=== PATIENT | male | born 1995 | race African-American/Black ===

== ENCOUNTER 2017-10-25 21:40 | Emergency (ER) | payer SELFPAY | END 2017-10-25 22:21 | disposition home or self-care (01) | LOC: ERS 21:40 | DX: S90.422A Blister (nonthermal), left great toe, initial encounter (principal); F17.210 Nicotine dependence, cigarettes, uncomplicated; X58.XXXA Exposure to other specified factors, initial encounter | CPT/HCPCS: 99283 ==

== ENCOUNTER 2018-01-10 12:51 | Emergency (ER) | payer SELFPAY ==
[2018-01-10] MEDS ORDERED: Ketorolac Tromethamine 30 MG/ML VIAL ONE (13:50)
[2018-01-10] MEDS ORDERED: Ibuprofen 200 MG TAB ONE (14:14)
== END 2018-01-10 15:00 | disposition home or self-care (01) ==
LOC: ERS 12:51
DX: R51 Headache (principal); G43.909 Migraine, unspecified, not intractable, without status migrainosus; F17.210 Nicotine dependence, cigarettes, uncomplicated
CPT/HCPCS: 99283; J1885

== ENCOUNTER 2019-03-05 18:45 | Emergency (ER) | payer SELFPAY ==
[2019-03-05 19:28] LABS: Hemoglobin 16.1 g/dL (14.0-18.0); Mean Corpuscular HGB CONC 33.5 g/dL (32.0-36.0); Mean Corpuscular Hemoglobin 30.5 pg (27.0-31.0); Mean Platelet Volume 8.4 fL (7.4-10.4); Platelet Count 137 thou/uL (130-400); RBC Distribution Width 11.7 % (11.5-14.5); Red Blood Cell (RBC) Count 5.27 mill/uL (4.70-6.10); White Blood Cell (WBC) Count 4.3 thou/uL (4.8-10.8)
[2019-03-05 19:41] LABS: Band 2 % (5-11); Lymphocytes 51 % (21-51); MDiff Complete? YES; Monocytes 13 % (0-10); Neutrophil 33 % (42-75); Platelet Morphology Comment Appears Adequate; RBC Morphology Normal
--- NOTE | 2019-03-05 19:56 | RAD ---
PA AND LATERAL VIEWS OF THE CHEST: 03/05/19 HISTORY: Shortness of breath and chest pain. FINDINGS: The cardiomediastinum is normal. The lungs are expanded and clear. The bony thorax is normal. IMPRESSION: Normal exam. POS: [facility]
[2019-03-05 19:59] LABS: ALT (SGPT) 16 U/L (8-55); AST (SGOT) 25 U/L (5-34); Albumin 4.5 g/dL (3.5-5.0); Alkaline Phosphatase 100 U/L (40-150); Anion Gap 17 mmol/L (10-20); BUN (Urea Nitrogen) 11 mg/dL (8.9-20.6); Bilirubin, Total 0.3 mg/dL (0.2-1.2); Calc. Creatinine Clearance 0 mL/min (70-130); Calcium 9.5 mg/dL (7.8-10.44); Carbon Dioxide 25 mmol/L (22-29); Chloride 99 mmol/L (98-107); Estimated GFR-MDRD Greater than 90; Globulin 3.2 g/dL (2.4-3.5); Glucose 94 mg/dL (70-105); Potassium 3.6 mmol/L (3.5-5.1); Protein, Total 7.7 g/dL (6.0-8.3); Sodium 137 mmol/L (136-145)
== END 2019-03-05 20:53 | disposition home or self-care (01) ==
LOC: SCSER 18:45
DX: R06.02 Shortness of breath (principal); Z71.6 Tobacco abuse counseling; F17.210 Nicotine dependence, cigarettes, uncomplicated
CPT/HCPCS: 71046; 80053; 84484; 85025; 85379; 93005; 94640; 99406; J7620

== ENCOUNTER 2023-07-05 19:39 | Emergency (ER) | payer SELFPAY ==
[2023-07-05] MEDS ORDERED: Methocarbamol 500 MG TAB PO SCH (20:30)
[2023-07-05] MEDS ORDERED: Ibuprofen 800 MG TAB ONE (21:08)
== END 2023-07-05 20:15 | disposition home or self-care (01) ==
LOC: ERS 19:39
DX: M54.50 Low back pain, unspecified (principal)
CPT/HCPCS: 99283

== ENCOUNTER 2023-07-12 13:38 | Emergency (ER) | payer SELFPAY | END 2023-07-12 14:19 | disposition home or self-care (01) | LOC: ERS 13:38 | DX: M54.50 Low back pain, unspecified (principal); F17.210 Nicotine dependence, cigarettes, uncomplicated | CPT/HCPCS: 99283 ==

== ENCOUNTER 2023-09-27 19:05 | Emergency (ER) | payer OTHER, SELFPAY ==
[2023-09-27 20:19] LABS: #Eosinphils 0.1 thou/uL (0.0-0.7); #Monocytes 0.5 thou/uL (0.11-0.59); #Neutrophils 2.6 thou/uL (1.40-6.50); %Basophils 0.5 % (0.0-1.0); %Eosinophils 1.5 % (0.0-10.0); %Lymphocytes 44.4 % (21.0-51.0); %Monocytes 9.2 % (0.0-10.0); %Neutrophils 44.2 % (42.0-75.0); Hematocrit 41.6 % (42.0-52.0); Hemoglobin 14.3 g/dL (14.0-18.0); Mean Corpuscular HGB CONC 34.4 g/dL (32.0-36.0); Mean Corpuscular Hemoglobin 32.8 pg (27.0-31.0); Mean Corpuscular Volume 95.4 fl (78.0-98.0); Mean Platelet Volume 10.6 fL (7.4-10.4); Platelet Count 209 10x3/uL (130-400); RBC Distribution Width 12.5 % (11.5-14.5); Red Blood Cell (RBC) Count 4.36 mill/uL (4.70-6.10); White Blood Cell (WBC) Count 5.9 10x3/uL (4.8-10.8)
[2023-09-27] MEDS ORDERED: Ketorolac Tromethamine 30 MG/ML VIAL ONE (20:36)
[2023-09-27 20:50] LABS: Troponin I Less than 0.010 ng/mL (< 0.028)
[2023-09-27 20:51] LABS: ALT (SGPT) 14 U/L (8-55); AST (SGOT) 19 U/L (5-34); Albumin 4.8 g/dL (3.5-5.0); Alkaline Phosphatase 87 U/L (40-110); Anion Gap 14 mmol/L (10-20); BUN (Urea Nitrogen) 11 mg/dL (8.9-20.6); Bilirubin, Total 0.2 mg/dL (0.2-1.2); Calc. Creatinine Clearance 0 mL/min (70-130); Calcium 9.6 mg/dL (7.8-10.44); Carbon Dioxide 26 mmol/L (22-29); Chloride 104 mmol/L (98-107); Estimated GFR 84; Globulin 2.7 g/dL (2.4-3.5); Glucose 93 mg/dL (70-105); Lipase 24 U/L (8-78); Potassium 3.5 mmol/L (3.5-5.1); Protein, Total 7.5 g/dL (6.0-8.3); Sodium 140 mmol/L (136-145)
[2023-09-27 20:57] LABS: SARS-CoV-2 NAA Rapid Test Not Detected (NotDetected)
== END 2023-09-27 22:55 | disposition home or self-care (01) ==
LOC: ERS 19:05
DX: R53.1 Weakness (principal); K21.9 Gastro-esophageal reflux disease without esophagitis; F17.210 Nicotine dependence, cigarettes, uncomplicated
CPT/HCPCS: 80053; 83690; 84484; 85025; 93005; 96361; 96374; J1885

== ENCOUNTER 2023-10-05 17:58 | Emergency (ER) | payer SELFPAY ==
[2023-10-05] MEDS ORDERED: predniSONE 20 MG TAB ONE (19:39)
[2023-10-05] MEDS ORDERED: Cyclobenzaprine 10 MG TAB ONE (19:39)
== END 2023-10-05 19:56 | disposition home or self-care (01) ==
LOC: ERS 17:58
DX: M53.3 Sacrococcygeal disorders, not elsewhere classified (principal); F17.210 Nicotine dependence, cigarettes, uncomplicated
CPT/HCPCS: 72100; J7512

== ENCOUNTER 2024-10-04 20:52 | Emergency (ER) | payer SELFPAY | END 2024-10-04 21:30 | disposition home or self-care (01) | LOC: ERS 20:52 | DX: K04.7 Periapical abscess without sinus (principal); F17.210 Nicotine dependence, cigarettes, uncomplicated | CPT/HCPCS: 99282 ==

== ENCOUNTER 2024-10-06 04:30 | Emergency (ER) | payer SELFPAY ==
[2024-10-06] MEDS ORDERED: Acetaminophen 500 MG TAB ONE (05:05)
[2024-10-06] MEDS ORDERED: Morphine 10 MG/ML VIAL ONE (05:06)
[2024-10-06] MEDS ORDERED: Ondansetron ODT 4 MG TAB ONE (05:06)
== END 2024-10-06 05:36 | disposition home or self-care (01) ==
LOC: ERS 04:30
DX: K08.89 Other specified disorders of teeth and supporting structures (principal); F17.210 Nicotine dependence, cigarettes, uncomplicated
CPT/HCPCS: 96372; 99282; J2270; Q0162

== ENCOUNTER 2025-11-07 22:55 | Emergency (ER) | payer SELFPAY ==
[2025-11-08] MEDS ORDERED: Ibuprofen 200 MG TAB ONE (00:10)
== END 2025-11-08 04:52 | disposition home or self-care (01) ==
LOC: ERS 22:55
DX: S01.111A Laceration without foreign body of right eyelid and periocular area, initial encounter (principal); F17.210 Nicotine dependence, cigarettes, uncomplicated; W01.10XA Fall on same level from slipping, tripping and stumbling with subsequent striking against unspecified object, initial encounter
CPT/HCPCS: 12011; 70450; 70486; 72125